=== PATIENT | female | born 1955 | race Caucasian/White ===

== ENCOUNTER 2017-08-27 14:15 | Emergency (ER) | payer OTHER, BC ==
[2017-08-27 15:25] LABS: ADD MAN DIFF? NO
[2017-08-27 15:30] LABS: BASOPHIL # 0.1 10^3/ul (0.0-0.1); BASOPHILS % 0.7 % (0.0-2.0); HEMATOCRIT 42.4 % (37.0-47.0); HEMOGLOBIN 13.9 g/dl (12.0-16.0); LYMPHOCYTES # 3.4 10^3/ul (0.8-2.9); LYMPHOCYTES % 30.6 % (15.0-51.0); MEAN CORPUSCULAR HEMOGLOBIN 28.8 pg (29.0-33.0); MEAN CORPUSCULAR HGB CONC 32.8 g/dl (32.0-37.0); MONOCYTE # 0.7 10^3/ul (0.3-0.9); MONOCYTES % 6.3 % (0.0-11.0); NEUTROPHIL # 6.8 10^3/ul (1.6-7.5); NEUTROPHILS % 61.8 % (39.0-77.0); PLATELET COUNT 296 10^3/UL (140-415); RED BLOOD COUNT 4.82 10^6/ul (4.20-5.40); RED CELL DISTRIBUTION WIDTH 12.1 % (11.5-14.5)
[2017-08-27 15:49] LABS: ALANINE AMINOTRANSFERASE 61 IU/L (13-69); ALBUMIN 4.5 g/dl (3.3-4.9); ALBUMIN/GLOBULIN RATIO 1.55; ALKALINE PHOSPHATASE 125 IU/L (42-121); ANION GAP 14 (8-16); ASPARTATE AMINO TRANSFERASE 29 IU/L (15-46); BILIRUBIN,INDIRECT 0.5 mg/dl (0-1.1); BILIRUBIN,TOTAL 0.5 mg/dl (0.2-1.3); BLOOD UREA NITROGEN 14 mg/dl (7-20); CALCIUM 9.7 mg/dl (8.4-10.2); CARBON DIOXIDE 21 mmol/L (21-31); CHLORIDE 108 mmol/L (97-110); CREATININE 0.46 mg/dl (0.44-1.00); GLUCOSE 128 mg/dl (70-220); LIPASE 252 U/L (23-300); POTASSIUM 4.3 mmol/L (3.5-5.1); SODIUM 139 mmol/L (135-144); TOTAL PROTEIN 7.4 g/dl (6.1-8.1)
[2017-08-27 16:00] LABS: B-TYPE NATRIURETIC PEPTIDE 164 PG/ML (0-125)
[2017-08-27 16:01] LABS: TROPONIN-I < 0.012 ng/ml (0.000-0.120)
== END 2017-08-27 17:25 | disposition home or self-care (01) ==
LOC: E/R 14:15
DX: R10.13 Epigastric pain (principal); I10 Essential (primary) hypertension; Z79.82 Long term (current) use of aspirin
CPT/HCPCS: 36415; 71045; 80053; 83690; 83880; 84484; 85025; 93005; 99285-25

== ENCOUNTER 2018-04-11 12:13 | Emergency (ER) | payer OTHER | END 2018-04-11 13:33 | disposition home or self-care (01) | LOC: FTE 12:13 | DX: H02.9 Unspecified disorder of eyelid (principal); I10 Essential (primary) hypertension; Z79.84 Long term (current) use of oral hypoglycemic drugs; Z79.82 Long term (current) use of aspirin | CPT/HCPCS: 99283; Z7502 ==